=== PATIENT | female | born 1965 | race Caucasian/White ===

== ENCOUNTER 2016-07-24 09:56 | Emergency (ER) | payer BC, MEDICAID ==
[~2016-07-24] VITALS: Ht 165.1 cm; Wt 111.0 kg
[~2016-07-24 09:56] MED LIST: NO MEDS
[2016-07-24 10:05] VITALS: Ht 165.1 cm; Wt 111.0 kg
[2016-07-24] MEDS ORDERED: IBUPROFEN 600 MG TAB PO ONE (11:00)
--- NOTE | 2016-07-24 12:21 | RADRPT ---
PROCEDURE: XR Knees. CLINICAL INDICATION: Trauma. Pain. TECHNIQUE: Three views of the bilateral knees are available for review. COMPARISON: None available FINDINGS: The osseous structures, articular spaces, and surrounding soft tissues of the bilateral knees are al l unremarkable. No acute fracture or dislocation is seen. No radiopaque foreign body is identified . Alignment is anatomic. IMPRESSION: 1. Unremarkable bilateral knee x-ray series. 2. No acute fracture or dislocation is seen. RPTAT: HMJB .Bruno Bar MD, Date Time Electronically viewed and signed by .Bruno Bar MD, on 07/24/2016 12:21 .B/
[2016-07-24 13:46] LABS: ADD SCAN DIFF NO
[2016-07-24 13:50] LABS: BASOPHILS % 0.5 % (0.0-2.0); EOSINOPHILS # 0.1 10^3/ul (0.0-0.5); EOSINOPHILS % 1.1 % (0.0-7.0); HEMATOCRIT 40.4 % (37.0-47.0); HEMOGLOBIN 13.9 g/dl (12.0-16.0); LYMPHOCYTES # 1.6 10^3/ul (0.8-2.9); LYMPHOCYTES % 25.2 % (15.0-51.0); MEAN CORPUSCULAR HEMOGLOBIN 28.9 pg (29.0-33.0); MEAN CORPUSCULAR HGB CONC 34.4 g/dl (32.0-37.0); MEAN PLATELET VOLUME 10.6 fl (7.4-10.4); MONOCYTE # 0.6 10^3/ul (0.3-0.9); MONOCYTES % 9.7 % (0.0-11.0); NEUTROPHILS % 63.2 % (39.0-77.0); PLATELET COUNT 288 10^3/UL (140-415); RED BLOOD COUNT 4.81 10^6/ul (4.20-5.40); WHITE BLOOD COUNT 6.3 10^3/ul (4.8-10.8)
[2016-07-24 14:00] LABS: ADD UMIC YES; URINE BILIRUBIN (Dip) NEGATIVE (NEGATIVE); URINE BLOOD (Dip) NEGATIVE (NEGATIVE); URINE COLOR LT. YELLOW (YELLOW); URINE GLUCOSE (Dip) NEGATIVE (NEGATIVE); URINE KETONES (Dip) NEGATIVE (NEGATIVE); URINE LEUKOCYTE ESTERASE (Dip) 1+ (NEGATIVE); URINE NITRITE (Dip) NEGATIVE (NEGATIVE); URINE TOTAL PROTEIN (Dip) NEGATIVE (NEGATIVE); URINE UROBILINOGEN (Dip) 0.2 E.U./dL (0.1-1.0)
[2016-07-24 14:02] LABS: ALBUMIN 4.4 g/dl (3.3-4.9); CHLORIDE 104 mmol/L (97-110); POTASSIUM 4.1 mmol/L (3.5-5.1); SODIUM 142 mmol/L (135-144)
[2016-07-24 14:04] LABS: ANION GAP 16 (8-16); ASPARTATE AMINO TRANSFERASE 38 IU/L (15-46); BILIRUBIN,INDIRECT 0.4 mg/dl (0-1.1); BILIRUBIN,TOTAL 0.4 mg/dl (0.2-1.3); CARBON DIOXIDE 26 mmol/L (21-31); CREATININE 0.76 mg/dl (0.44-1.00)
[2016-07-24 14:05] LABS: ALANINE AMINOTRANSFERASE 49 IU/L (13-69); ALBUMIN/GLOBULIN RATIO 1.33; ALKALINE PHOSPHATASE 69 IU/L (42-121); BLOOD UREA NITROGEN 22 mg/dl (7-20); CALCIUM 9.3 mg/dl (8.4-10.2); GLUCOSE 143 mg/dl (70-220); TOTAL PROTEIN 7.7 g/dl (6.1-8.1)
[2016-07-24 14:10] LABS: SQUAMOUS EPITHELIAL CELL,UR FEW; URINE RBCS NONE SEEN /HPF (0)
[2016-07-24 14:11] LABS: ACETAMINOPHEN < 10.0 ug/ml (10.0-30.0); BACTERIA,URINE FEW; ETHANOL < 10.0 mg/dl; SALICYLATE < 1.0 mg/dl (5.0-30.0)
[2016-07-24 14:17] LABS: BARBITURATES Negative (NEGATIVE); BENZODIAZEPINES Negative (NEGATIVE); CANNABINOIDS Negative (NEGATIVE); COCAINE Negative (NEGATIVE); OPIATES Negative (NEGATIVE)
[2016-07-24] MEDS ORDERED: RISP1TAB3 PO (16:03)
[2016-07-24] MEDS ORDERED: LAMO25TA PO (16:03)
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
[2016-07-24 17:47] VITALS: BP 141/99; RESP 20; TEMP 98.2
== END 2016-07-24 18:16 | disposition home or self-care (01) ==
LOC: FTE 09:56 → E/R 18:16
DX: S80.02XA Contusion of left knee, initial encounter (principal); R40.2252 Coma scale, best verbal response, oriented, at arrival to emergency department; F31.60 Bipolar disorder, current episode mixed, unspecified; F22 Delusional disorders; R40.2142 Coma scale, eyes open, spontaneous, at arrival to emergency department; R40.2362 Coma scale, best motor response, obeys commands, at arrival to emergency department; W51.XXXA Accidental striking against or bumped into by another person, initial encounter; Y92.9 Unspecified place or not applicable
CPT/HCPCS: 36415; 73564; 80053; 80306; 80307; 81001; 85025; 99284; Z7610; 81003